=== PATIENT | female | born 1980 | race African-American/Black ===

== ENCOUNTER 2021-11-22 11:37 | Emergency (ER) | payer OTHER, SELFPAY ==
--- NOTE | 2021-11-22 11:50 | ED.URI ---
HPI - URI/Sore Throat General Chief Complaint: Upper Respiratory Infection Stated Complaint: COUGH/CONGESTION/SOB Time Seen by Provider: 11/22/21 11:55 Source: patient and RN notes reviewed Mode of arrival: ambulatory Limitations: no limitations History of Present Illness HPI Narrative: 41-year-old female presents concern for cough and chest congestion. She reports symptoms started yesterday. She is concerned because she has a history of chronic sinusitis and gets bronchitis. She reports taking Delsym and Mucinex DM for her cough today. She denies shortness of breath, fever, bodies, chills, sweats. Reports she took a COVID test that was negative. MD elicited complaint: cough Related Data Home Medications Medication Instructions Recorded Confirmed flaxseed oil 1,000 mg capsule 1,000 mg PO DAILY 11/22/21 11/22/21 guaifenesin 600 mg tablet, 600 mg PO Q12H PRN Cough 11/22/21 11/22/21 extended release 12 hr (Mucinex) multivitamin 1 tablet PO DAILY 11/22/21 11/22/21 pseudoephedrine HCl 30 mg tablet 30 mg PO Q4-6H PRN Congestion 11/22/21 11/22/21 (Sudafed) Allergies Allergy/AdvReac Type Severity Reaction Status Date / Time No Known Allergies Allergy Verified 11/22/21 11:59 Review of Systems Review of Systems: CONSTITUTIONAL: Denies malaise, chills, sweats, or fever. EYES: Denies visual changes, redness, or discharge. ENT: Reports rhinorrhea, congestion. Denies sinus pain, otalgia and sore throat. CARDIOVASCULAR: Denies chest pain, palpitations, or edema. RESPIRATORY: Reports cough and chest congestion Denies dyspnea. GASTROINTESTINAL: Denies abdominal pain, nausea, vomiting, diarrhea SKIN: Denies rash or itching. MUSCULOSKELETAL: Denies myalgia. NEUROLOGIC: Denies headache. All systems reviewed & are unremarkable except as noted in HPI and below PMFSH Comments At time of signature, agree with nursing past medical, surgical, social and family history. There is no relevant family history pertinent to the presenting complaint Exam Narrative: GENERAL: Well-appearing, well-nourished, and in no acute distress. HEAD: Normocephalic EYES: PERRLA, conjunctivae clear ENT: Nares clear. Mucous membranes moist. TM pearly nielsen with sharp light reflex bilaterally; no tragal tenderness. Oropharynx not erythematous without lesions. Tonsils not enlarged and without exudate, no drooling, no hoarseness, no trismus, uvula midline. NECK: Supple. No lymphadenopathy CHEST: Clear to auscultation, breath sounds equal. No wheezing, rhonchi, rales, or stridor. No respiratory distress, speaks in full sentences. Cough noted HEART: Regular rate and rhythm. No murmur heard. SKIN: Warm, dry, no rash. NEURO: Alert and oriented x3. PSYCH: Normal mood and affect Course Course Emergency Course: Patient is aware of diagnosis, understands and agrees to treatment plan. Anticipatory guidance given. Patient agrees to follow-up as directed and is aware of reasons to seek care at the emergency department. Portions of this record may have been created with voice recognition software Level of Care: Express Care Visit Vital Signs Vital signs: Reviewed. MDM - URI/Sore Throat MDM Narrative Medical decision making narrative: Differential diagnosis considered: Woodruff virus, strep pharyngitis, allergic rhinitis, upper respiratory tract infection, sinusitis, rhinosinusitis, nasopharyngitis. viral pharyngitis, otitis media, otitis externa, pneumonia, bronchitis, viral cough syndrome, viral syndrome, and influenza. Exam findings show no acute concerns or changes; patient is non-toxic appearing and is in no distress. Patient is appropriate for outpatient treatment and follow-up. Lab Data Attestation: I reviewed the patient's lab results. Critical Care Time Critical Care Time Critical Care Time: No Discharge Plan Discharge Clinical Impression: Upper respiratory infection with cough and congestion Patient Disposition: Home, Self-Care Condition
[2021-11-22 12:10] VITALS: BP 144/97; PULSE 89; RESP 20; TEMP 36.9; O2SAT 100
== END 2021-11-22 12:20 | disposition home or self-care (01) ==
PROVIDERS: Emergency Provider Nurse Practitioner; PCP Family Medicine
DX: J06.9 Acute upper respiratory infection, unspecified (principal); R05.9 Cough, unspecified
CPT/HCPCS: 99213; G0463

== ENCOUNTER 2021-12-09 12:51 | Outpatient (CLI) | payer OTHER, SELFPAY ==
--- NOTE | ~2021-12-09 | MMUS_ITS ---
EXAMINATION: MM diag sarah implant BI w talia, US breast BI complete HISTORY: Reportedly abnormal mammogram from elsewhere TECHNIQUE: Implant displaced ML, MLO and CC 3-D tomosynthesis images of both breasts were performed a nd synthetic 2-D images were generated. Implant ML, MLO and CC views. CAD analysis was submitted and interpreted. High resolution complete bilateral breast ultrasound including all 4 quadrants and subar eolar area of each breast was performed. COMPARISON: 04/28/2021 outside Limited right breast ultrasound at 4:00 3 cm from nipple: 1.96 x 0.84 x 2.40 cm parallel circumscribed hypoechoic solid lesion 09/17/2020 outside Limited right breast ultrasound examination, multiple cysts are identified in additi on to a 4:00 well-circumscribed 1.9 cm lesion which was thought to be a prominent fat lobule 09/09/2020 and 08/25/2019 outside bilateral mammogram examinations BREAST PARENCHYMAL COMPOSITION: The breasts are extremely dense, which lowers the sensitivity of mamm ography. FINDINGS: MAMMOGRAPHIC FINDINGS: Status post bilateral augmentation mammoplasty. Very dense stroma is noted throughout both breasts which may obscure masses. No suspicious mass, arch itectural distortion, malignant calcification, skin thickening or retraction is noted. ULTRASOUND: Bilateral breast implants are noted. There are numerous benign cysts scattered in both breasts. The largest is noted at the right breast 3 :00 position near the nipple, measuring 11 x 7.5 x 13 mm In the right breast at 4:00 again noted is a parallel circumscribed lesion with internal septations, measuring approximately 8.4 x 20 x 27 mm, with through transmission, no posterior shadowing. This palmer ears benign. IMPRESSION: 1. Benign findings 2. Routine mammographic screening is recommended BI-RADS Category 2: Benign finding(s). Reviewed, dictated and finalized at location A. IMPRESSION: 1. Benign findings 2. Routine mammographic screening is recommended BI-RADS Category 2: Benign finding(s).
== END 2021-12-09 12:52 | disposition home or self-care (01) ==
PROVIDERS: PCP Family Medicine; Visit Provider Physician Assistant
DX: R92.8 Other abnormal and inconclusive findings on diagnostic imaging of breast (principal)
CPT/HCPCS: 76641; 77062; 77066; G0279

== ENCOUNTER 2022-01-20 09:17 | Outpatient (CLI) | payer OTHER, SELFPAY ==
[2022-01-20 18:22] LABS: Basophils Absolute Auto 0.1 K/mm3 (0.0-0.1); Basophils Percent Auto 0.7 % (0.2-1.2); Eosinophils Absolute Auto 0.1 K/mm3 (0-0.3); Eosinophils Percent Auto 0.9 % (0-4.4); Hematocrit 41.2 % (37.0-47.0); Hemoglobin 13.3 g/dL (12.0-15.0); Immature Granulocyte Absolute 0.02 K/mm3 (0.00-0.031); Immature Granulocyte Percent A 0.3 % (0-0.5); Lymphocytes Absolute Auto 1.52 K/mm3 (0.9-3.2); Lymphocytes Percent Auto 20.3 % (18.3-44.2); Mean Corpuscular HGB Conc 32.3 g/dl (32-36); Mean Corpuscular Hemoglobin 31.4 pg (26-34); Mean Corpuscular Volume 97.4 fl (80-100); Mean Platelet Volume 9.5 fl (7.4-10.4); Monocytes Absolute Auto 0.7 K/mm3 (0.1-0.6); Monocytes Percent Auto 9.2 % (2.6-8.5); Neutrophils Absolute Auto 5.2 K/mm3 (1.3-6.7); Neutrophils Percent Auto 68.6 % (45.5-73.1); Platelet Count Result 272 k/mm3 (150-375); Red Blood Count 4.23 M/mm3 (4.2-5.4); Red Cell Distribution Width 13.3 % (11.5-14.5); White Blood Count 7.5 K/mm3 (4.5-10.0)
[2022-01-20 18:34] LABS: Alanine Aminotransferase 18 U/L (6-35); Albumin Level 4.3 g/dL (3.5-5.1); Alkaline Phosphatase 66 U/L (38-126); Anion Gap 9 mmol/L (8-16); Aspartate Amino Transferase 22 U/L (14-36); Bilirubin,Total 0.6 mg/dL (0.2-1.3); Blood Urea Nitrogen 11 mg/dL (7-17); Carbon Dioxide 24 mmol/L (22-30); Chloride 106 mmol/L (98-107); Cholesterol 212 mg/dL (0-200); Estimated Glomerular Filt Rate > 60; Glucose 90 mg/dL (65-110); HDL Direct 40 mg/dL; Potassium 4.5 mmol/L (3.4-5.0); Sodium 139 mmol/L (137-145); Triglycerides 137 mg/dL (<150)
[2022-01-20 18:45] LABS: LDL Cholesterol Direct 121 mg/dL
== END 2022-01-20 09:18 | disposition home or self-care (01) ==
LOC: ANHGOSHLAB 09:21
PROVIDERS: PCP Family Medicine; Visit Provider Family Medicine
DX: N92.0 Excessive and frequent menstruation with regular cycle (principal); Z00.00 Encounter for general adult medical examination without abnormal findings
CPT/HCPCS: 36415; 80053; 80061; 82728; 85025

== ENCOUNTER 2022-05-24 09:50 | Emergency (ER) | payer OTHER, SELFPAY ==
--- NOTE | 2022-05-24 09:56 | ED.FEMALEGU ---
HPI - Female Genitourinary General Chief complaint: Urogenital-Female Stated complaint: uti Time Seen by Provider: 05/24/22 09:57 Source: patient and RN notes reviewed History of Present Illness HPI Narrative: Patient is a 41-year-old female who presents to urgent care with complaints of possible UTI due to urinary urgency and frequency for the last few days. Patient states that she does have 1 cup of coffee but otherwise is not drinking a lot of caffeine. Denies any use of [id number] medication for her symptoms. Denies any low back pain, fever, nausea, vomiting or abdominal pain. Patient does not have frequent history of UTIs. No other acute complaints. No acute distress noted. Patient aware of the plan of care. Some parts of this dictation were generated by voice recognition software and may contain typographical and/or grammatical inaccuracies. Related Data Home Medications Medication Instructions Recorded Confirmed multivitamin 1 tablet PO DAILY 11/22/21 05/04/22 guaifenesin 600 mg tablet, 600 mg PO Q12H PRN 01/14/22 05/04/22 extended release 12 hr (Mucinex) levonorgestrel 21 mcg/24 hours (8 1 device intrauterine ONCE 01/14/22 05/04/22 yrs) 52 mg intrauterine device (Mirena) pseudoephedrine HCl 30 mg tablet 30 mg PO Q4-6H PRN 01/14/22 05/04/22 (Sudafed) Allergies Allergy/AdvReac Type Severity Reaction Status Date / Time No Known Allergies Allergy Verified 05/04/22 13:06 Review of Systems Review of Systems: CONSTITUTIONAL: Denies fever, chills, or sweats. EYES: Denies visual changes, redness, or discharge. ENT: Denies rhinorrhea, congestion, sore throat, or otalgia. CARDIOVASCULAR: Denies chest pain, palpitations, or edema. RESPIRATORY: Denies cough or dyspnea. GASTROINTESTINAL: Denies abdominal pain, nausea, vomiting, or diarrhea. GENITOURINARY: Reports urinary frequency and urgency SKIN: Denies rash or itching. MUSCULOSKELETAL: Denies back pain, joint pain, or myalgia. NEUROLOGIC: Denies headache, numbness, or weakness. All other systems reviewed are negative, except as documented in HPI. [facility] Past Medical History Medical History Abnormal mammogram follow up 12.09. Status post bilateral augmentation mammoplasty. normal Hx of human papillomavirus infection Surgical History Surgical History History of conization of cervix History of loop electrosurgical excision procedure (LEEP) Hx of tubal ligation Social History Social History Social History: caffeine-Coffee daily Smoking status: Never smoker Alcohol intake: never Comments At the time of my signature, I reviewed and agree with the nursing past medical, surgical, social, and family history. There is no relevant family history pertinent to the patient complaint. Exam Narrative: GENERAL: This is a well-nourished, well-developed patient, in no apparent distress. HEAD: normocephalic, atraumatic. EYES: PERRL. Sclera clear/white. Vision is grossly intact. EARS: External ears normal NOSE: External nose normal with no obvious nasal discharge, nares without redness, no rhinorrhea. THROAT: Mucous membranes moist NECK: Neck supple GASTROINTESTINAL: Abdomen soft, non-tender, nondistended. SKIN: warm, intact with no suspicious lesions or rash, good texture and turgor. NEURO: awake, alert, and oriented to person, place and time. There were no obvious focal neurologic abnormalities. EXTREMITIES: No clubbing, cyanosis, or edema. BACK: Negative bilateral CVA tenderness Course Course Level of Care: Express Care Visit Vital Signs Vital signs: Vital Signs Temperature 97.2 F L 05/24/22 09:57 Pulse Rate 71 05/24/22 09:57 Respiratory Rate 16 05/24/22 09:57 Blood Pressure 117/74 05/24/22 09:57 Pulse Oximetry 98 05/24/22 09:57 Oxygen Delivery Brittany
[2022-05-24 09:57] VITALS: BP 117/74; PULSE 71; RESP 16; TEMP 36.2; O2SAT 98
== END 2022-05-24 10:25 | disposition home or self-care (01) ==
PROVIDERS: Emergency Provider Nurse Practitioner Family; PCP Family Medicine
DX: R39.15 Urgency of urination (principal)
CPT/HCPCS: 81003; 99212; G0463

== ENCOUNTER 2022-06-30 14:24 | Outpatient (CLI) | payer OTHER, SELFPAY ==
[2022-06-30 19:46] LABS: Basophils Absolute Auto 0.1 K/mm3 (0.0-0.1); Basophils Percent Auto 0.9 % (0.2-1.2); Eosinophils Absolute Auto 0.1 K/mm3 (0-0.3); Eosinophils Percent Auto 0.6 % (0-4.4); Hematocrit 37.8 % (37.0-47.0); Hemoglobin 12.6 g/dL (12.0-15.0); Immature Granulocyte Absolute 0.02 K/mm3 (0.00-0.031); Immature Granulocyte Percent A 0.2 % (0-0.5); Lymphocytes Absolute Auto 1.47 K/mm3 (0.9-3.2); Lymphocytes Percent Auto 18.2 % (18.3-44.2); Mean Corpuscular HGB Conc 33.3 g/dl (32-36); Mean Corpuscular Hemoglobin 31.7 pg (26-34); Mean Corpuscular Volume 95.2 fl (80-100); Monocytes Absolute Auto 0.8 K/mm3 (0.1-0.6); Monocytes Percent Auto 9.3 % (2.6-8.5); Neutrophils Absolute Auto 5.7 K/mm3 (1.3-6.7); Neutrophils Percent Auto 70.8 % (45.5-73.1); Platelet Count Result 291 k/mm3 (150-375); Red Blood Count 3.97 M/mm3 (4.2-5.4); Red Cell Distribution Width 13.1 % (11.5-14.5); White Blood Count 8.1 K/mm3 (4.5-10.0)
[2022-06-30 20:28] LABS: Alanine Aminotransferase 18 U/L (6-35); Albumin Level 4.2 g/dL (3.5-5.1); Alkaline Phosphatase 63 U/L (38-126); Anion Gap 5 mmol/L (8-16); Aspartate Amino Transferase 22 U/L (14-36); Bilirubin,Total 0.4 mg/dL (0.2-1.3); Blood Urea Nitrogen 14 mg/dL (7-17); Calcium 8.7 mg/dL (8.4-10.2); Carbon Dioxide 26 mmol/L (22-30); Chloride 105 mmol/L (98-107); Estimated Glomerular Filt Rate > 60; Glucose 91 mg/dL (65-110); Potassium 3.7 mmol/L (3.4-5.0); Sodium 136 mmol/L (137-145)
[2022-07-04 18:41] LABS: Gliadin AB, IgG <1.0 U/mL (<15.0); TTG IGA AB <1.0 U/mL (<15.0)
== END 2022-06-30 14:25 | disposition home or self-care (01) ==
LOC: ANHGOSHLAB 14:25
PROVIDERS: PCP Family Medicine; Visit Provider Physician Assistant
DX: R19.8 Other specified symptoms and signs involving the digestive system and abdomen (principal)
CPT/HCPCS: 36415; 80053; 84443; 85025; 86255; 86364

== ENCOUNTER 2022-08-03 01:19 | Day surgery (SDC) | payer OTHER, SELFPAY ==
[2022-07-20 15:09] VITALS: BMI 29.5
[2022-08-03 09:35] VITALS: BP 119/82; PULSE 72; RESP 20; TEMP 36.1; O2SAT 100
[2022-08-03] MEDS: LACTATED RINGERS 1,000 ML 150 ML IV CONT (09:49)
--- NOTE | 2022-08-03 10:03 | WPDANESEPPF ---
Anes - Initial Pre Proc Eval Procedure: Operation Date: 08/03/22 10:30 Proposed Procedures p Colonoscopy - Ebenezer Pabon MD Date/Time: 08/03/22 10:03 Surgeon: Ebenezer Pabon MD Pre Op Diagnosis: Other specified symptoms and signs Patient Data Age: 41 Gender: F Height: 1.63 m Weight: 79 kg Last Vital Signs Temp 97 F L 08/03/22 09:35 Pulse 72 08/03/22 09:35 Resp 20 08/03/22 09:35 BP 119/82 08/03/22 09:35 Pulse Ox 100 08/03/22 09:35 O2 Del Method Room Air 08/03/22 09:35 Allergies Allergy/AdvReac Type Severity Reaction Status Date / Time No Known Allergies Allergy Verified 08/03/22 09:34 Home Medications Medication Instructions Recorded Confirmed Type multivitamin 1 tablet PO DAILY 11/22/21 07/31/22 History guaifenesin 600 mg tablet, 600 mg PO Q12H PRN Congestion 01/14/22 07/31/22 History extended release 12 hr (Mucinex) levonorgestrel 21 mcg/24 hours (8 1 device intrauterine ONCE 01/14/22 07/31/22 History yrs) 52 mg intrauterine device (Mirena) fluticasone propionate 50 1 spray intranasal DAILY 05/24/22 07/31/22 History mcg/actuation nasal spray,suspension sodium,potassium,mag sulfates 17.5 See Rx Instructions PO .COMPLEX 07/02/22 07/31/22 Rx gram-3.13 gram-1.6 gram oral soln #354 mL (Suprep Bowel Prep Kit) albuterol 2 puff inhalation PRN sob 07/20/22 07/31/22 History Patient hx anesthesia problems: none Family hx anesthesia problems: none Results Review: All pre-operative results and documents have been reviewed as part of the pre-operative evaluation. [facility] Past Medical History Medical History Abnormal mammogram follow up 12.09.21 Status post bilateral augmentation mammoplasty. normal Hx of human papillomavirus infection Surgical History Surgical History H/O lumbosacral spine surgery History of conization of cervix History of loop electrosurgical excision procedure (LEEP) Hx of tubal ligation Social History Social History Social History: caffeine-Coffee daily Smoking status: Never smoker Alcohol intake: never Substance use: never Substance use type: does not use Living arrangements: with family Spiritual care concerns: No Anes - Eval Final PreProcedure Day of Procedure 08/03/22 10:03 Patient weight: overweight Heart: regular rate and rhythm Lungs: clear to auscultation Airway: Mallampati scale class II Neurological: alert and oriented Last oral intake: >/= 8 hours ASA classification: II Emergent: no Anesthetic plan: proceed Anesthesia type and monitoring: general GIVS and standard monitoring Results Review: All pre-operative results and documents have been reviewed as part of the pre-operative evaluation. Informed Consent: The patient's anesthetic plan and its attendant risks and benefits were discussed with the patient/family/POA. Questions were solicited and answers provided to the satisfaction of the patient/family/POA.
--- NOTE | 2022-08-03 10:31 | PM.HPGS ---
History of Present Illness History of Present Illness Consent: Risks, benefits, and alternatives have been discussed and questions answered. Patient agrees to proceed with procedure. Chief complaint: neoplasia screening, IBS Narrative: Usha Conti is a 41 year old female Referred for colonoscopy. Patient referred for screening colonoscopy. Because of her age. Patient gives a history of alternating diarrhea and constipation consistent with irritable bowel syndrome. She has been on no specific therapy. Patient denies any typical blood in his stool but occasionally has bright red blood per rectum attributed to hemorrhoids. Family history is noncontributory. Patient referred today for colonoscopy. Review of Systems Review of Systems: Review of systems noncontributory. [facility] Past Medical History Medical History Abnormal mammogram follow up 12.09.21 Status post bilateral augmentation mammoplasty. normal Hx of human papillomavirus infection Surgical History Surgical History H/O lumbosacral spine surgery History of conization of cervix History of loop electrosurgical excision procedure (LEEP) Hx of tubal ligation Social History Social History Social History: caffeine-Coffee daily Smoking status: Never smoker Alcohol intake: never Substance use: never Substance use type: does not use Living arrangements: with family Spiritual care concerns: No Meds Home Medications and Allergies Home Medications Medication Instructions Recorded Confirmed Type multivitamin 1 tablet PO DAILY 11/22/21 07/31/22 History guaifenesin 600 mg tablet, 600 mg PO Q12H PRN Congestion 01/14/22 07/31/22 History extended release 12 hr (Mucinex) levonorgestrel 21 mcg/24 hours (8 1 device intrauterine ONCE 01/14/22 07/31/22 History yrs) 52 mg intrauterine device (Mirena) fluticasone propionate 50 1 spray intranasal DAILY 05/24/22 07/31/22 History mcg/actuation nasal spray,suspension albuterol 2 puff inhalation PRN sob 07/20/22 07/31/22 History Allergies Allergy/AdvReac Type Severity Reaction Status Date / Time No Known Allergies Allergy Verified 08/03/22 09:34 Vital Signs Vital Signs - 24 hr 08/03/22 09:35 Temperature 97 F L Pulse Rate 72 Respiratory Rate 20 Blood Pressure 119/82 Pulse Oximetry 100 Oxygen Delivery Room Air Exam Narrative: Physical exam reveals patient to be alert. Vital signs stable. HEENT exam is unremarkable. Patient is anicteric. Lungs are clear to auscultation and percussion. Heart is without murmur or extra sounds. Abdomen bowel sounds are present soft nontender with no organomegaly. Digital external rectal exam is normal. Assessment and Plan Assessment and plan (1) Abnormal bowel movement: Code(s): R19.8 - Other specified symptoms and signs involving the digestive system and abdomen Status: Acute Assessment and Plan: Abnormal bowel movements most consistent with irritable bowel syndrome. She has diarrhea alternating with constipation. She has occasional bright red blood per rectum attributed to hemorrhoids. Plan to increase fiber intake. Patient should try FiberCon 2 tabs p.o. b.i.d.. Colonoscopy requested will be performed today for this reason as well as because of her age because of neoplasia screening.
[2022-08-03 11:42] VITALS: BP 102/57; PULSE 81; RESP 17; O2SAT 100
[2022-08-03 11:52] VITALS: BP 119/82; PULSE 82; RESP 19; O2SAT 100
[2022-08-03 12:02] VITALS: BP 128/82; PULSE 76; RESP 12; O2SAT 100
== END 2022-08-03 12:10 | disposition home or self-care (01) ==
PROVIDERS: PCP Family Medicine; Visit Provider Internal Medicine Gastroenterology
PROC: 0DJD8ZZ Inspection of Lower Intestinal Tract, Via Natural or Artificial Opening Endoscopic (ICD-10-PCS; CPT 45378; principal; 2022-08-03 10:30)
DX: K58.2 Mixed irritable bowel syndrome (principal); K64.8 Other hemorrhoids
CPT/HCPCS: 45378; J2704; J7120

== ENCOUNTER → 2023-02-18 15:08 | Outpatient (CLI) | payer OTHER, SELFPAY ==
--- NOTE | ~2023-02-18 | MM_ITS ---
EXAMINATION: MM scrn sarah implant BI w talia HISTORY: Screening mammogram TECHNIQUE: Craniocaudal and mediolateral oblique 3-D tomosynthesis images with implant displacement a nd synthetic 2-D images were generated. Craniocaudal and mediolateral oblique views of the breasts wi thout implant displacement were obtained using full field digital mammography. CAD analysis was submi tted and interpreted. COMPARISON: 12/09/2021, 09/09/2020, 08/25/2019 BREAST PARENCHYMAL COMPOSITION: The breasts are extremely dense, which lowers the sensitivity of mamm ography. FINDINGS: A cyst in the outer left breast demonstrates slight increase in size. There is no evidence of suspicious mass, calcification, or architectural distortion to suggest malignancy in either breast . There has been no suspicious interval change. IMPRESSION: 1. No mammographic evidence of malignancy. 2. Recommend routine screening mammography in one year. BI-RADS Category 2: Benign finding(s). Reviewed, dictated and finalized at location A. [employer]
== END ==
PROVIDERS: PCP Family Medicine; Visit Provider Family Medicine
DX: Z12.31 Encounter for screening mammogram for malignant neoplasm of breast (principal)
CPT/HCPCS: 77063; 77067

== ENCOUNTER 2023-08-24 10:37 | Outpatient (CLI) | payer OTHER, SELFPAY ==
[2023-08-24 13:04] LABS: Basophils Absolute Auto 0.1 K/mm3 (0.0-0.1); Eosinophils Absolute Auto 0.1 K/mm3 (0-0.3); Eosinophils Percent Auto 1.3 % (0-4.4); Hematocrit 41.3 % (37.0-47.0); Hemoglobin 13.6 g/dL (12.0-15.0); Immature Granulocyte Absolute 0.03 K/mm3 (0.00-0.031); Immature Granulocyte Percent A 0.5 % (0-0.5); Lymphocytes Absolute Auto 1.46 K/mm3 (0.9-3.2); Lymphocytes Percent Auto 24.1 % (18.3-44.2); Mean Corpuscular HGB Conc 32.9 g/dl (32-36); Mean Corpuscular Hemoglobin 31.8 pg (26-34); Mean Corpuscular Volume 96.5 fl (80-100); Mean Platelet Volume 9.7 fl (7.4-10.4); Monocytes Absolute Auto 0.6 K/mm3 (0.1-0.6); Monocytes Percent Auto 9.6 % (2.6-8.5); Neutrophils Absolute Auto 3.8 K/mm3 (1.3-6.7); Neutrophils Percent Auto 63.5 % (45.5-73.1); Platelet Count Result 317 k/mm3 (150-375); Red Blood Count 4.28 M/mm3 (4.2-5.4); Red Cell Distribution Width 13.1 % (11.5-14.5); White Blood Count 6.1 K/mm3 (4.5-10.0)
[2023-08-24 13:17] LABS: Alanine Aminotransferase 17 U/L (6-35); Albumin Level 4.5 g/dL (3.5-5.1); Alkaline Phosphatase 61 U/L (38-126); Anion Gap 4 mmol/L (4-12); Aspartate Amino Transferase 34 U/L (14-36); Bilirubin,Total 0.8 mg/dL (0.2-1.3); Blood Urea Nitrogen 14 mg/dL (7-17); Calcium 9.4 mg/dL (8.4-10.2); Carbon Dioxide 28 mmol/L (22-30); Chloride 106 mmol/L (98-107); Cholesterol 246 mg/dL (0-200); Estimated Glomerular Filt Rate > 60; Glucose 84 mg/dL (65-110); HDL Direct 50 mg/dL; Potassium 4.8 mmol/L (3.4-5.0); Sodium 138 mmol/L (137-145); Triglycerides 124 mg/dL (<150)
[2023-08-24 13:28] LABS: LDL Cholesterol Direct 148 mg/dL
[2023-08-24 13:45] LABS: Thyroid Stimulating Hormone 0.819 uIU/mL (0.465-4.680)
== END 2023-08-24 10:38 | disposition home or self-care (01) ==
LOC: ANHGOSHLAB 10:38
PROVIDERS: PCP Family Medicine; Visit Provider Student in an Organized Health Care Education/Training Program
DX: Z00.00 Encounter for general adult medical examination without abnormal findings (principal); Z13.0 Encounter for screening for diseases of the blood and blood-forming organs and certain disorders involving the immune mechanism; Z13.220 Encounter for screening for lipoid disorders; Z13.29 Encounter for screening for other suspected endocrine disorder
CPT/HCPCS: 36415; 80053; 80061; 84443; 85025

== ENCOUNTER 2023-08-24 11:04 | Outpatient (CLI) | payer OTHER, SELFPAY ==
--- NOTE | ~2023-08-24 | XR_ITS ---
AP and lateral views of the left hip Clinical history: Pain Findings: No acute fracture or dislocation is seen. Osseous alignment is anatomic. Bilateral hip and SI joint spaces are preserved. Soft tissues are unremarkable. Impression: No significant abnormality is seen. Reviewed, dictated and finalized at location . Impression: No significant abnormality is seen.
== END 2023-08-24 11:05 ==
PROVIDERS: PCP Family Medicine; Visit Provider Student in an Organized Health Care Education/Training Program
DX: M25.552 Pain in left hip (principal)
CPT/HCPCS: 73502

== ENCOUNTER 2023-10-01 08:00 | Outpatient (RCR) | payer OTHER, SELFPAY ==
--- NOTE | 2023-09-09 10:00 | PTOPEVAL1 ---
Assessment and note entered by Glenroy Rosario Evaluation Information Assessment Status Evaluation Diagnosis left hip pain Onset 06/14/23 Subjective Information Pt. reports that she developed left hip pain around June. She initially noticed the pain after laying on her left side one night. She reports that she has a hx of low back surgery, consisting of L4-5 fusion. She describes pain around the greater trochanter of the left l.e. She states that pain is really only noticeable with laying on her left side. She states that the pain will subside when rolling off her left side. She reports that she recently returned to the gym and has no pain with all exercise. She reports that pain does not limit her in her day to day, but states that she cannot sleep well due to pain. She reports that she will occasionally take Aleve to reduce her pain. She states that her goal for therapy is to achieve pain relief so she can sleep better at night. Reported Pain Level Pain Score 2: Self Report Assessment PT Clinical Summary Pt. is a 43 year old female who enters the clinic with left hip pain. She presents with pain at the greater trochanter and gluteal musculature on the left, impaired proximal l.e. strength and impaired flexibility on this date. Continued skilled PT is indicated in order to improve these areas to allow for pain relief to assist the pt. in achieving her goal of improve sleep. Plan of Care Interventions Electrical Stimulation,Hot Pack/Cold Pack,Manual Therapy,Neuro Re-education,Therapeutic Activities, Therapeutic Exercise PT Services Indicated Yes Treatment Frequency and 2x/week x 8 visits Duration These treatments will address the objective and functional deficits as defined above. The patient will be advanced safely and appropriately in order for the patient to progress towards his/her prior level of function. Additional exercises will be introduced and as well as a comprehensive home exercise program upon discharge, if needed, ?to ensure carryover of functional gains achieved in the clinic. This treatment plan has been reviewed and agreement upon by the patient.
--- NOTE | 2023-09-09 10:00 | OPREHPOC ---
Outpatient Therapy Plan of Care This is a Multidisciplinary Plan of Care that may contain components documented by all disciplines (PT, OT, and ST.) PT Problem 1 PT Problem #1 Knowledge Deficit PT Goal 1 Goal Pt. will be independent with a HEP addressing flexibility and pelvic stability. Target Visit 2 PT Problem 2 PT Problem #2 Pain PT Goal 1 Goal Pt. will report reduction in pain level to 2/10 at worst with sleeping Pt. will provide subjective reports of being able to sleep through the night without pain disturbance. Target Visit 8 PT Problem 3 PT Problem #3 Impaired Strength PT Goal 1 Goal Pt. will present with 4+/5 left hip ER and abduction strength to improve pelvic stability in standing. Target Visit 8 PT Problem 4 PT Problem #4 Impaired Flexibility PT Goal 1 Goal Pt. will present with minimal tightness on the left with the Boris test. Target Visit 8
--- NOTE | 2023-10-04 09:55 | PCPTNOTE ---
Patient called & cancelled scheduled appointment this date due to having a work conflict.
--- NOTE | 2023-10-18 08:08 | PTOPDC ---
Assessment and note entered by Francisco Reyes, PT, DPT Evaluation Information Assessment Status Discharge - Pt Not Present Diagnosis left hip pain Onset 06/14/23 Subjective Information Pt called to cancel her rescheduled re-evaluation d/t scheduling. Called pt to follow up. She states she is doing her exercises and her hip is feeling much better. States she does not need additional therapy. Assessment PT Clinical Summary Usha completed 3 visits of skilled therapy and will be discharged at this time per her request.
== END 2023-10-18 08:19 | disposition home or self-care (01) ==
LOC: ANHGOSHPT 08:00
PROVIDERS: PCP Family Medicine; Visit Provider Student in an Organized Health Care Education/Training Program
DX: M25.552 Pain in left hip (principal)
CPT/HCPCS: 97014; 97110; 97140; 97161; 97530; G0283

== ENCOUNTER 2024-03-02 07:32 | Outpatient (CLI) | payer OTHER, SELFPAY ==
--- NOTE | ~2024-03-02 | US_ITS ---
EXAMINATION: US pelvic complete w TV INDICATION: Enlarged uterus Comparison:No prior studies for comparison. TECHNIQUE: Multiple transabdominal and endovaginal sonographic images of the pelvis performed. FINDINGS: The uterus measures 7.7 x 3.2 x 5.3 cm. There are uterine fibroids measuring up to 4.5 cm a t the fundus and posteriorly measuring up to cyst 2.7 cm. The endometrial complex measures 8 mm. The right ovary measures 3.5 x 2.6 x 1.8 cm and the left ovary measures 3.3 x 2.7 x 1.8 cm. There ar e small follicles in each ovary. Normal doppler signal in both ovaries. There is free fluid in the pelvis. There are no abnormal masses seen on either side. IMPRESSION: 1. Uterine fibroids, largest located at the fundus measuring 4.5 x 4.5 x 3.8 cm. Reviewed, dictated and finalized at location [] N SPOOLER IMPRESSION: 1. Uterine fibroids, largest located at the fundus measuring 4.5 x 4.5 x 3.8 cm .
--- NOTE | ~2024-03-02 | MMUS_ITS ---
EXAMINATION: MM diag sarah implant BI w talia, US breast LT limited HISTORY: Left breast lump TECHNIQUE: 3-D tomosynthesis images of the breasts were performed and synthetic 2-D images were gener ated. CAD analysis was submitted and interpreted. High resolution limited left breast ultrasound was performed. COMPARISON: 02/18/2023, 12/09/2021 BREAST PARENCHYMAL COMPOSITION:Dense: The breasts are extremely dense, which lowers the sensitivity o f mammography. FINDINGS: MAMMOGRAPHIC FINDINGS: Parenchymal pattern of the breast is unchanged. No suspicious mass lesion or distortion seen. No susp icious microcalcification. ULTRASOUND: At the 9:00 position left breast subareolar region, there is a 1.4 x 0.9 x 1.5 cm parallel, circumscr ibed hypoechoic solid mass. No posterior shadowing. IMPRESSION: 1.4 cm probable benign solid mass the left breast 9:00 subareolar region, most likely fibroadenoma. Six-month follow-up ultrasound recommended to reassess. BI-RADS category 3, probably benign findings. Reviewed, dictated and finalized at location M. [employer] IMPRESSION: 1.4 cm probable benign solid mass the left breast 9:00 subareolar region, most likely fibroadenoma. Six-month follow-up ultrasound recommended to reassess. BI-RADS category 3, probably benign findings.
== END 2024-03-02 07:33 | disposition home or self-care (01) ==
PROVIDERS: PCP Obstetrics & Gynecology; Visit Provider Obstetrics & Gynecology
DX: N63.20 Unspecified lump in the left breast, unspecified quadrant (principal); N85.2 Hypertrophy of uterus; N92.0 Excessive and frequent menstruation with regular cycle; D25.9 Leiomyoma of uterus, unspecified
CPT/HCPCS: 76642; 76830; 76856; 77062; 77066; G0279

== ENCOUNTER 2024-04-06 13:09 | Emergency (ER) | payer OTHER, SELFPAY ==
[2024-04-06 13:21] VITALS: BP 124/78; PULSE 82; RESP 16; TEMP 36.7; O2SAT 100
--- NOTE | 2024-04-06 13:58 | ED.SKABFB ---
HPI - Skin/Abscess/Foreign Bdy General Chief complaint: Skin/Abscess/Foreign Body Stated complaint: Rash/Dry Skin on Lips Time Seen by Provider: 04/06/24 13:41 Source: patient and RN notes reviewed Mode of arrival: ambulatory Limitations: no limitations History of Present Illness HPI narrative: Patient presents today complaining of a rash around her lips. She tried a new lip balm in January for the 1st time, had a rash around her lips but did not believe it may be due to lip balm. Tried it again for the 2nd time at the end of February and had the same reaction. She developed bumps around the edge of her lips. She has tried chapstick and clotrimazole topically without improvement of symptoms. She denies itching or pain, but reports flaking and dryness to her skin. Related Data Home Medications ?Medication ?Instructions ?Recorded ?Confirmed ?Last Taken ?Type multivitamin 1 tablet PO DAILY 11/22/21 03/02/24 Unknown History fluticasone propionate 50 1 spray intranasal DAILY 05/24/22 03/02/24 Unknown History mcg/actuation nasal spray,suspension albuterol 2 puff inhalation PRN sob 07/20/22 03/02/24 Unknown History Allergies Allergy/AdvReac Type Severity Reaction Status Date / Time No Known Allergies Allergy Verified 04/06/24 15:38 Review of Systems Review of Systems: CONSTITUTIONAL: Denies body aches, fever, chills, or sweats. EYES: Denies visual changes, redness, or discharge. ENT: Denies rhinorrhea, congestion, sore throat, or otalgia. CARDIOVASCULAR: Denies chest pain, palpitations, or edema. RESPIRATORY: Denies cough or dyspnea. GASTROINTESTINAL: Denies abdominal pain, nausea, vomiting, or diarrhea. GENITOURINARY: Denies dysuria or hematuria. SKIN: Circumoral rash MUSCULOSKELETAL: Denies back pain, joint pain, or myalgia. NEUROLOGIC: Denies headache, numbness, tingling, or weakness. PSYCH: Denies depression or anxiety. [facility] Past Medical History Medical History Bronchospasm with bronchitis, acute Abnormal Pap smear of cervix Carpal tunnel syndrome Hx of human papillomavirus infection Abnormal mammogram follow up 12.09.21 Status post bilateral augmentation mammoplasty. normal Surgical History Surgical History H/O LEEP History of back surgery H/O breast implant H/O lumbosacral spine surgery History of conization of cervix History of loop electrosurgical excision procedure (LEEP) Hx of tubal ligation Family History Family History Mother Diabetes mellitus Hypertension Father Hypertension Social History Social History Social History: caffeine-Coffee daily Smoking status: Never smoker Alcohol intake: never Substance use: never Substance use type: does not use Do You Feel Safe in your Home?: Yes Living arrangements: with family Spiritual care concerns: No Comments At time of signature, I have reviewed and agree with nursing past medical, surgical, social and family history unless otherwise noted. Please see nursing chart for further information. There is no relevant family history pertinent to the presenting complaint Exam Narrative: GENERAL: Well-appearing, well-nourished, and in no acute distress. HEAD: Normocephalic, atraumatic. EYES: EOMI. No redness or drainage. Conjunctivae normal. ENT: Mucous membranes pink and moist. Tiny faint areas of flaking at the dao border of the top and bottom lip, mostly on the left. No erythema, induration, crusting, or drainage noted. NECK: Normal AROM. CHEST: No respiratory distress. EXTREMITIES: Normal range of motion. No edema. SKIN: Warm, dry, no rash. Capillary refill normal. Normal skin turgor. NEURO: No focal deficits. Alert and oriented x3. Gait steady. PSYCH: Normal affect. No signs of depression or anxiety. Course Course Level of Care: Express Care Visit Vital Signs Vital signs: Vital Signs Temperature 98.1 F 04/06/24 13:21 Pulse Rate 82 04/06/24 13:21 Respiratory Rate 16 04/06/24 13:21 Blood Pressure 124/78 04/06/24 13:21 Pulse Oximetry 100 04/06/24 13:21 Temperature 98.1 F 04/06/24 13:21 Pulse Rate 82 04/06/24 13:21 Respiratory Rate 16 04/06/24 13:21 Blood Pressure 124/78 04/06/24 13:21 Pulse Oximetry 100 04/06/24 13:21 Reviewed MDM - Skin/Abscess/Foreign Bdy MDM Narrative Medical decision making narrative: Will treat with medrol dose pack and fluconazole for fungal vs contact dermatitis. Patient agrees with plan. Will follow up with her PCP if symptoms do not improve. Differential Diagnosis Differential diagnosis: Likely viral exanthem, dermatophytosis, urticaria, cellulitis, eczema, impetigo and contact dermatitis Critical Care Time Critical Care Time Critical Care Time: No Discharge Plan Discharge Clinical Impression: Facial dermatitis Patient Disposition: Home, Self-Care Condition: Stable Instructions: Dermatitis (ED) Additional Instructions: The cause of your rash is unclear. Please take the fluconazole and Medrol Dosepak as directed. Use an occlusive barrier such as Vaseline. Follow-up with your PCP in 2 weeks if symptoms are not improving. Your blood pressure was elevated above 120/80 today at Urgent Care. This puts you above the threshold for follow up. Please schedule a followup visit with your personal physician as soon as possible, for further evaluation and treatment. Even blood pressure exceeding 120/80 may indicate pre-hypertension. Patient Language: Hungarian Prescriptions: New methylprednisolone [Medrol ([place])] 4 mg tablets,dose pack See Rx Instructions .ROUTE .COMPLEX Qty: 21 0RF Rx Instructions: orally per package directions fluconazole 150 mg tablet 150 mg PO WEEKLY Qty: 2 0RF No Action multivitamin [Daily Multivitamin] Tablet 1 tablet PO DAILY fluticasone propionate [Flonase] 50 mcg/actuation [place],Suspension 1 spray INTRANASAL DAILY Rx Instructions: administer into each nostril sertraline 25 mg tablet See Rx Instructions PO DAILY Qty: 90 1RF Rx Instructions: orally daily; 1 po q day. May increase to 2 po q day albuterol 2 puff inhalation PRN fluticasone propion-salmeterol [Wixela Inhub] 250-50 mcg/dose blister with device 1 inh inhalation BID Qty: 60 1RF Rx Instructions: rinse mouth after use Follow-up/Referrals: Latrice Young MD [Primary Care Provider] - Time of Disposition: 14:00
== END 2024-04-06 14:03 | disposition home or self-care (01) ==
PROVIDERS: Emergency Provider Nurse Practitioner; PCP Family Medicine
DX: L30.9 Dermatitis, unspecified (principal)
CPT/HCPCS: 99213; G0463

== ENCOUNTER 2024-08-07 11:42 | Emergency (ER) | payer OTHER, SELFPAY ==
[2024-08-07 11:55] VITALS: BP 114/81; PULSE 98; RESP 16; TEMP 36.8; O2SAT 100
--- NOTE | 2024-08-07 12:09 | ED_ITS ---
HPI - URI/Sore Throat General Chief Complaint: Upper Respiratory Infection Stated Complaint: COUGH Time Seen by Provider: 08/07/24 12:09 Source: patient, RN notes reviewed and old records reviewed Mode of arrival: ambulatory Limitations: no limitations History of Present Illness HPI Narrative: 43-year-old female who presents to [facility] with complaints of persistent cough since being treated for bronchitis on 07/20/2024 with Azithromycin and Prednisone which she completed. Patient reports that cough is worse at night and has been taking NyQuil to sleep. Patient reports that she has not had any known fevers but has been sweaty has had some left ear discomfort and throat feels raw from all the coughing.. Patient is presently taking Macrobid for UTI also. Patient reports that she took home COVID test which was negative. MD elicited complaint: cough Pertinent past history: pneumonia, sinusitis and other (bronchitis) Onset (ago): week(s) (2) Consistency: constant Severity: moderate Description of mucous: clear and green Able to tolerate fluids by mouth: Yes Treatments prior to arrival: cold medicine and other (completed azithromycin and prednisone.) Related Data Home Medications ?Medication ?Instructions ?Recorded ?Confirmed ?Last Taken ?Type multivitamin 1 tablet PO DAILY 11/22/21 08/07/24 Unknown History fluticasone propionate 50 1 spray intranasal DAILY 05/24/22 08/07/24 Unknown History mcg/actuation nasal spray,suspension albuterol 2 puff inhalation PRN sob 07/20/22 08/07/24 Unknown History Allergies Allergy/AdvReac Type Severity Reaction Status Date / Time No Known Allergies Allergy Verified 05/25/24 09:35 Review of Systems Review of Systems: CONSTITUTIONAL: Reports malaise, chills, +sweats, or fever. EYES: Denies visual changes, redness, or discharge. ENT: Reports rhinorrhea, congestion, sinus pain,left otalgia and +sore throat. CARDIOVASCULAR: Denies chest pain, palpitations, or edema. RESPIRATORY: Reports dry cough.? Denies dyspnea. GASTROINTESTINAL: Denies abdominal pain, nausea, vomiting, diarrhea SKIN: Denies rash or itching. MUSCULOSKELETAL: Denies myalgia. NEUROLOGIC: Denies headache. All systems reviewed & are unremarkable except as noted in HPI and below PMFSH Past Medical History Medical History Bronchospasm with bronchitis, acute Abnormal Pap smear of cervix Carpal tunnel syndrome Hx of human papillomavirus infection Abnormal mammogram follow up 12.09.21 Status post bilateral augmentation mammoplasty. normal Surgical History Surgical History H/O LEEP History of back surgery H/O breast implant H/O lumbosacral spine surgery History of conization of cervix History of loop electrosurgical excision procedure (LEEP) Hx of tubal ligation Family History Family History Mother Diabetes mellitus Hypertension Father Hypertension Social History Social History Social History: caffeine-Coffee daily Smoking status: Never smoker Alcohol intake: never Substance use: never Substance use type: does not use Do You Feel Safe in your Home?: Yes Living arrangements: with family Spiritual care concerns: No Comments At time of signature, agree with nursing past medical, surgical, social and family history. There is no relevant family history pertinent to the presenting complaint Exam Narrative: GENERAL: Well-appearing, well-nourished, and in no acute distress. HEAD: Normocephalic EYES: PERRLA, conjunctivae clear ENT: Nares clear, turbinates edematous and erythematous, clear discharge. Mucous membranes moist.Left TM red, Right TM pearly nielsen with dull light reflex; no tragal tenderness. Oropharynx erythematous without lesions. Tonsils not enlarged and without exudate, no drooling, no hoarseness, no trismus, uvula midline.post nasal discharge NECK: Supple. No lymphadenopathy CHEST: Clear to auscultation, breath sounds equal. No wheezing, rhonchi, rales, or stridor. No respiratory distress, speaks in full sentences.persistent cough SAO2 100% on room air HEART: Regular rate and rhythm. No murmur heard. SKIN: Warm, dry, no rash. NEURO: Alert and oriented x3. PSYCH: Normal mood and affect Course Course Emergency Course: Patient is aware of diagnosis, understands and agrees to treatment plan.? Anticipatory guidance given.? Patient agrees to follow-up as directed and is aware of reasons to seek care at the emergency department. Portions of this record may have been created with voice recognition software Level of Care: Express Care Visit Vital Signs Vital signs: Vital Signs Temperature 36.8 C 08/07/24 11:55 Pulse Rate 98 08/07/24 11:55 Respiratory Rate 16 08/07/24 11:55 Blood Pressure 114/81 08/07/24 11:55 Pulse Oximetry 100 08/07/24 11:55 Temperature 36.8 C 08/07/24 11:55 Pulse Rate 98 08/07/24 11:55 Respiratory Rate 16 08/07/24 11:55 Blood Pressure 114/81 08/07/24 11:55 Pulse Oximetry 100 08/07/24 11:55 Reviewed MDM - URI/Sore Throat MDM Narrative Medical decision making narrative: Differential diagnosis considered: [place] virus, strep pharyngitis, allergic rhinitis, upper respiratory tract infection, sinusitis, rhinosinusitis, nasopharyngitis. viral pharyngitis, otitis media, otitis externa, pneumonia, bronchitis, viral cough syndrome, viral syndrome, and influenza.? Exam findings show no acute concerns or changes; patient is non-toxic appearing and is in no distress.? Patient is appropriate for outpatient treatment and follow-up. Differential Diagnosis Differential diagnosis: Likely upper respiratory infection, otitis media, viral infection and other (acute cough) Medical Records Attestation: I reviewed the patient's medical records. Lab Data Attestation: I reviewed the patient's lab results. Critical Care Time Critical Care Time Critical Care Time: No Discharge Plan Discharge Clinical Impression: Acute cough Otitis media Qualifiers: Otitis media type: serous Chronicity: acute Laterality: left Recurrence: non- recurrent Qualified Code(s): H65.02 - Acute serous otitis media, left ear Sinusitis Qualifiers: Sinusitis location: pansinusitis Chronicity: subacute Qualified Code(s): J01.40 - Acute pansinusitis, unspecified Patient Disposition: Home Condition: Stable Instructions: Antibiotic Form, Sinusitis (ED), Ear Infection (GEN), Acute Cough (ED) Additional Instructions: Increase fluids especially juices and water [id number] cough and cold medicine of your choice for your symptoms Prescription cough medicine as directed--caution drowsiness and no driving or alcohol Zyrtec Claritin or Bina daily continue your Flonase nasal spray continue your inhaler/nebulizer as directed Tylenol or ibuprofen for any fever pain heat to the face 20-30 minutes 4-6 times a day for pain Salt water gargles, throat lozenges or throat sprays as desired Antibiotic as directed--finished the medication If your symptoms persist, change or worsen significantly before you can contact your personal physician then please, without delay, go to the emergency department for further evaluation. Follow-up with PCP in 7-10 days or sooner if needed Patient Language: [place] Citizen Prescriptions: New amoxicillin-pot clavulanate 875-125 mg tablet 1 tablet PO Q12H Qty: 20 0RF Rx Instructions: take with food recommend probiotic while taking this medication codeine-guaifenesin 10-100 mg/5 mL liquid 10 ml PO Q4-6H PRN (Reason: cough) Qty: 200 0RF Rx Instructions: can not drive while taking and must hold sleeping medication while on this medication No Action multivitamin [Daily Multivitamin] Tablet 1 tablet PO DAILY fluticasone propionate [Flonase] 50 mcg/actuation [place],Suspension 1 spray INTRANASAL DAILY Rx Instructions: administer into each nostril albuterol 2 puff inhalation PRN fluticasone propion-salmeterol [Wixela Inhub] 250-50 mcg/dose blister with device 1 inh inhalation BID Qty: 60 1RF Rx Instructions: rinse mouth after use Slynd 4 mg (28) tablet 4 mg PO DAILY Qty: 84 2RF ramelteon [Rozerem] 8 mg tablet 8 mg PO QHS PRN (Reason: sleep) Qty: 30 1RF Zepbound 2.5 mg/0.5 mL solution 2.5 mg subcut WEEKLY 28 Days Qty: 2 6RF Rx Instructions: + injection supplies fluticasone propion-salmeterol [Wixela Inhub] 500-50 mcg/dose blister with device 1 inh inhalation Q12H Qty: 60 1RF Rx Instructions: rinse mouth after use azithromycin 250 mg tablet See Rx Instructions PO .COMPLEX Qty: 6 0RF Rx Instructions: For 250 mg dose pack: take 500 mg today (day 1), then 250 mg for 4 days (days 2-5) PO Follow-up/Referrals: Latrice Young MD [Primary Care Provider] - Time of Disposition: 12:31 Quality [place] Coma Scale Eyes: Open Verbal: Oriented and Alert Motor: Follows Commands [place] Coma Total Score: 15
== END 2024-08-07 12:35 | disposition home or self-care (01) ==
PROVIDERS: Emergency Provider Registered Nurse; PCP Family Medicine
DX: R05.1 Acute cough (principal); H65.02 Acute serous otitis media, left ear; J01.40 Acute pansinusitis, unspecified
CPT/HCPCS: 99213; G0463

== ENCOUNTER 2024-08-10 10:35 | Outpatient (CLI) | payer OTHER, SELFPAY ==
--- NOTE | ~2024-08-10 | XR_ITS ---
Clinical Indication: Cough PA and lateral views of the chest: Comparison: None Findings: The lungs are clear, without evidence of focal consolidation or pleural effusion. Cardiome diastinal silhouette is within normal limits. Bones and soft tissues are unremarkable. Impression: Normal chest. Reviewed, dictated and finalized at location . Impression: Normal chest.
== END 2024-08-10 10:36 | disposition home or self-care (01) ==
PROVIDERS: PCP Family Medicine; Visit Provider Family Medicine
DX: R05.3 Chronic cough (principal)
CPT/HCPCS: 71046

== ENCOUNTER 2024-08-31 09:06 | Outpatient (CLI) | payer OTHER, SELFPAY ==
--- NOTE | ~2024-08-31 | US_ITS ---
US breast LT limited 08/31/2024 09:25 Indication: Follow-up left breast mass. Procedure: High-resolution Limited ultrasound of the left breast Comparison: Ultrasound dated 03/02/2024 Findings: At 9:00 near the areola there is an oval parallel oriented hypoechoic mass measuring 1.6 x 1.4 x 0.9 cm with marginal vascularity and posterior acoustic enhancement. This compares with measure ments of 1.5 x 1.4 x 0.9 cm 03/02/2024. Impression: 1: Stable likely benign left breast mass at 9:00 near the areola. BI-RADS CATEGORY 3-PROBABLY BENIGN FINDING RECOMMENDATION: 12 month follow up Limited left breast ultrasound recommended. Reviewed, dictated and finalized at location A. Impression: 1: Stable likely benign left breast mass at 9:00 near the areola. BI-RADS CATEGORY 3-PROBABLY BENIGN FINDING RECOMMENDATION: 12 month follow up Limited left breast ultrasound recommended.
== END 2024-08-31 09:07 | disposition home or self-care (01) ==
LOC: MICIMG 09:07
PROVIDERS: PCP Family Medicine; Visit Provider Family Medicine
DX: R92.8 Other abnormal and inconclusive findings on diagnostic imaging of breast (principal)
CPT/HCPCS: 76642

== ENCOUNTER 2025-01-15 08:36 | Outpatient (CLI) | payer OTHER, SELFPAY ==
--- NOTE | ~2025-01-15 | US_ITS ---
EXAMINATION: US pelvic complete w TV INDICATION: D21.9 - Benign neoplasm of connective and other soft tissue. TECHNIQUE: Multiple transabdominal and transvaginal sonographic images of the pelvis were obtained. COMPARISON: March 02, 2024 FINDINGS: There are bilateral adnexal varices. Uterus: There are multiple fibroids in the uterus. The largest one is in the fundus and has a maximum dimension of 4.5 cm.. It is retroverted and retroflexed. There are prominent myometrial vessels. The endometrium appears normal in thickness, with a thickness of 4 mm. Right Ovary: There is a 3.2 cm cyst findings some low level echoes. Vascular flow is present. Left Ovary: The left ovary appears normal.. Vascular flow is present. There is a small amount of free fluid in the pelvis. IMPRESSION: Fibroid uterus. No significant interval change. Reviewed, dictated and finalized at location A. [employer]
== END 2025-01-15 08:37 | disposition home or self-care (01) ==
LOC: MICIMG 08:37
PROVIDERS: PCP Family Medicine; Visit Provider Obstetrics & Gynecology
DX: D25.9 Leiomyoma of uterus, unspecified (principal)
CPT/HCPCS: 76830; 76856